=== PATIENT | male | born 1965 | race Caucasian/White ===

== ENCOUNTER 2018-09-15 17:06 | Inpatient (IN) ==
[2018-09-15] MEDS ORDERED: Aspirin 81 MG TAB.CHEW PO ONE ×2 (17:12→18:20)
[2018-09-15] MEDS ORDERED: Nitroglycerin 1 INCH/GM PACKET TP ONE ×2 (17:12→18:20)
[2018-09-15 17:22] LABS: Basophils # 0.1 K/mcL (0.0-0.2); Basophils % 0.9 %; Hematocrit 39.7 % (37.5-50.1); Hemoglobin 13.3 g/dL (12.9-16.9); Immature Granulocytes % 0.2 % (0-4); Lymphocytes # 1.6 K/mcL (0.6-4.6); Lymphocytes % 28.2 %; Mean Corpuscular HGB Conc 33.5 g/dL (31.6-35.5); Mean Corpuscular Hemoglobin 28.4 pg (28.0-33.3); Mean Corpuscular Volume 84.8 fL (83.0-100.0); Mean Platelet Volume 9.7 fL (9.4-12.4); Monocytes # 1.1 K/mcL (0.0-1.3); Monocytes % 19.6 %; Neutrophils # 2.9 K/mcL (1.6-8.9); Platelet Count 380 K/mcL (140-400); Red Blood Count 4.68 M/mcL (4.19-5.50); Red Cell Distribution Width 15.2 % (11.5-14.5); Segmented Neutrophils % 51.1 %
[2018-09-15] MEDS ORDERED: 0.9 % Sodium Chloride 1,000 ML IVC ONE ×3 (17:27→18:20)
[2018-09-15 17:30] LABS: INR 1.2; Prothrombin Time 13.2 Seconds (9.4-12.1)
--- NOTE | 2018-09-15 17:30 | Emergency Department Note ---
Disposition Clinical Impression: CAP (community acquired pneumonia), Hypotension Disposition: Admitted As Inpatient Condition: Fair Time of Disposition: 18:06 ( will admit) General Adult HPI - General Chief complaint: ED Arrhythmia/Palpitations Stated complaint: chest pain Time Seen by Provider: 09/15/18 17:28 Source: patient, EMS Mode of arrival: EMS Limitations: no limitations Nursing Notes Reviewed: Yes Vital Signs Reviewed: Yes - History of Present Illness HPI Narrative: This 53-year-old male, who presented to the emergency department via EMS. Patient states that he was laying on his couch at home when he tried to stand up he had a feeling of severe sweats, over him and some dizziness and blurred vision. After that he does not recall what happened. Patient does have history of seizure disorder, and states that he has not taken any of his seizure medicines for over a year. And that he also was complaining of this sharp pain in his chest, and is very nonspecific regarding the content of pain he is having. He denies smoking or drinking. Radiation: non-radiation Pain Severity: mild Pain Scale: 5 Quality: stabbing Consistency: intermittent Improves with: nothing Worsens with: nothing Associated symptoms: Reports: denies other symptoms Treatments Prior to Arrival: none - Related Data Allergies Allergy/AdvReac Type Severity Reaction Status Date / Time Amoxicillin Allergy Hives Verified 06/03/18 19:53 Penicillins [PCN] Allergy Hives Verified 06/03/18 19:53 acetaminophen AdvReac Nausea Verified 06/03/18 19:53 [From Darvocet-N] ibuprofen [From Motrin] AdvReac Nausea Verified 06/03/18 19:53 propoxyphene AdvReac Nausea Verified 06/03/18 19:53 [From Darvocet-N] Constitutional: Denies: fever, chills, weakness, weight change Eyes: Denies: eye pain, eye discharge, vision change ENT ED: Denies: ear pain, throat pain, dental pain, hearing loss, epistaxis, congestion, dysphagia Cardiovascular: Denies: chest pain, palpitations, dyspnea on exertion, edema, sy ncope Respiratory: Denies: cough, dyspnea, wheezes, hemoptysis, stridor Gastrointestinal: Denies: abdominal pain, nausea, vomiting, diarrhea, constipa tion, hematemesis, melena, hematochezia Genitourinary: Denies: urgency, dysuria, frequency, hematuria Musculoskeletal: Denies: back pain, neck pain, arthralgia, myalgia Integumentary: Denies: rash, abrasion, lesions Neurological: Denies: headache, weakness, numbness, paresthesias, confusion, abnormal gait, vertigo Psychiatric: Denies: anxiety, depression, suicidal thoughts, homicidal thoughts, auditory hallucinations, visual hallucinations Endocrine: Denies: fatigue Hematological/Lymphatic: Denies: easy bleeding, easy bruising Allergic/Immunologic: Denies: facial swelling, urticaria Past Medical History - Past Medical History Medical history: Reports: hepatitis, hypertension Surgical history: Reports: appendectomy, orthopedic, other, splenectomy, other Psychiatric history: Reports: anxiety, depression, panic disorder - Social History Smoking Status: Never smoker Smokeless Tobacco Status: No Alcohol use: Reports: occasionally Drug use: Reports: marijuana Physical Exam - General Limitations: no limitations General appearance: alert, in no apparent distress - Head Head exam: atraumatic, normocephalic, normal inspection - Eye Eye exam: Present: normal appearance, PERRL, EOMI - Expanded Eye Exam Pupils: Left: reactive - ENT ENT exam: normal exam, normal oropharynx, mucous membranes moist - Expanded ENT Exam External ear exam: Present: normal external inspection Mouth exam: Present: normal external inspection Teeth exam: Present: normal inspection Throat exam: Present: normal inspection - Neck Neck exam: Present: normal inspection, full ROM, trachea midline - Chest Chest inspection: Present: normal inspection, symmetric chest wall rise - Respiratory Respiratory exam: Present: normal lung sounds bilaterally - Cardiovascular Cardiovascular exam: Present: regular rate, normal rhythm, normal heart sounds - Abdominal Exam Abdominal exam: Present: soft, Non-Tender. Absent: tenderness, distention, guarding, rebound, rigidity - Extremities Exam Extremities exam: Present: normal inspection, full ROM. Absent: tenderness, pedal edema - Expanded Upper Extremity Exam Shoulder exam: Present: normal inspection, full ROM Arm exam: Present: normal inspection, full ROM Elbow exam: Present: normal inspection, full ROM Forearm/Wrist exam: Present: normal inspection, full ROM Hand exam: Present: normal inspection, full ROM Vascular exam: Normal: capillary refill, radial pulse - Expanded Lower Extremity Exam Hip/Pelvis exam: Present: normal inspection, full ROM Upper leg exam: Present: normal inspection, full ROM Knee exam: Present: normal inspection, full ROM Lower leg exam: Present: normal inspection, full ROM Ankle exam: Present: normal inspection, full ROM Foot/toe exam: Present: normal inspection, full ROM Neurovascular/Tendon exam: Absent: motor deficit, sensory deficit, tendon deficit - Back Exam Back exam: Present: normal inspection, full ROM. Absent: tenderness - Neurological Exam Neurological exam: Present: alert, oriented X3 - Expanded Neurological Exam Patient oriented to: Present: person, place, time Coma Scale Eye Opening: Spontaneous Coma Scale Motor Response: Obeys Commands Coma Scale Verbal Response: Oriented Coma Scale Total: 15 - Psychiatric Psychiatric exam: Present: normal affect, normal mood - Skin Skin exam: Present: warm, dry, intact, normal color Course Vital Signs Temperature 100.5 F H 09/15/18 17:07 Pulse Rate 69 09/15/18 17:07 Respiratory Rate 15 09/15/18 17:07 Blood Pressure 93/48 09/15/18 17:07 O2 Sat by Pulse Oximetry 98 09/15/18 17:07 Temperature 100.5 F H 09/15/18 17:30 Pulse Rate 69 09/15/18 17:30 Respiratory Rate 15 09/15/18 17:30 Blood Pressure 93/48 09/15/18 17:30 O2 Sat by Pulse Oximetry 98 09/15/18 17:30 Oxygen Delivery Oxygen Delivery Room Air Medical Decision Making - Medical Records Medical records reviewed: Yes I reviewed the patient's medical records. Patient had labs including CBC chemistries troponin EKG chest x-ray and a head CT. He was given 2 L of fluids wide open, blood culture 2 and a lactic acid level was obtained. Patient was started on Levaquin 500 mg IV for pneumonia. Initial blood pressure here was in the low 90s, his blood pressure has improved with IV fluids. At present blood pressure is 120/67. Patient is alert and awake and in no acute distress. I spoke with Dr. Matias the hospitalist, who is agreed to admit the patient. - Lab Data Lab results reviewed: Yes I reviewed the patient's lab results. Result diagrams: 09/15/18 17:14 09/15/18 17:14 Lab Results 09/15/18 09/15/18 09/15/18 Range/Units 17:14 17:14 17:14 WBC 5.6 (4.3-11.1) K/mcL RBC 4.68 (4.19-5.50) M/mcL Hgb 13.3 (12.9-16.9) g/dL Hct 39.7 (37.5-50.1) % MCV 84.8 (83.0-100.0) fL MCH 28.4 (28.0-33.3) pg MCHC 33.5 (31.6-35.5) g/dL RDW 15.2 H (11.5-14.5) % Plt Count 380 (140-400) K/mcL MPV 9.7 (9.4-12.4) fL Immature Gran % 0.2 (0-4) % Seg Neutrophils % 51.1 % Lymphocytes % 28.2 % Monocytes % 19.6 % Eosinophils % 0.0 % Basophils % 0.9 % Neutrophils # 2.9 (1.6-8.9) K/mcL Lymphocytes # 1.6 (0.6-4.6) K/mcL Monocytes # 1.1 (0.0-1.3) K/mcL Eosinophils # 0.0 (0.0-0.6) K/mcL Basophils # 0.1 (0.0-0.2) K/mcL Platelet Estimate Normal (Normal) Poikilocytosis 1+ A (Not Present) Acanthocytes (Spur) 1+ A (Not Present) PT 13.2 H (9.4-12.1) Seconds INR 1.2 APTT 34.5 (26.0-36.0) Seconds D-Dimer 1501 H (0-500) ng/mLFEU Sodium (136-145) mEq/L Potassium (3.5-5.1) mEq/L Chloride (98-107) mEq/L Carbon Dioxide (23-29) mEq/L BUN (6-20) mg/dL Creatinine (0.70-1.30) mg/dL Est GFR ( Amer) (> 60) Est GFR (Non-Af Amer) (> 60) BUN/Creatinine Ratio (6-26) Glucose (70-105) mg/dL Calculated Osmolality (280-300) Calcium (8.6-10.3) mg/dL Troponin I (< 0.04) ng/mL B-Natriuretic Peptide 32 (Less than 100) pg/mL 09/15/18 Range/Units 17:14 WBC (4.3-11.1) K/mcL RBC (4.19-5.50) M/mcL Hgb (12.9-16.9) g/dL Hct (37.5-50.1) % MCV (83.0-100.0) fL MCH (28.0-33.3) pg MCHC (31.6-35.5) g/dL RDW (11.5-14.5) % Plt Count (140-400) K/mcL MPV (9.4-12.4) fL Immature Gran % (0-4) % Seg Neutrophils % % Lymphocytes % % Monocytes % % Eosinophils % % Basophils % % Neutrophils # (1.6-8.9) K/mcL Lymphocytes # (0.6-4.6) K/mcL Monocytes # (0.0-1.3) K/mcL Eosinophils # (0.0-0.6) K/mcL Basophils # (0.0-0.2) K/mcL Platelet Estimate (Normal) Poikilocytosis (Not Present) Acanthocytes (Spur) (Not Present) PT (9.4-12.1) Seconds INR APTT (26.0-36.0) Seconds D-Dimer (0-500) ng/mLFEU Sodium 131 L (136-145) mEq/L Potassium 3.4 L (3.5-5.1) mEq/L Chloride 97 L (98-107) mEq/L Carbon Dioxide 26 (23-29) mEq/L BUN 11 (6-20) mg/dL Creatinine 0.96 (0.70-1.30) mg/dL Est GFR ( Amer) > 60 (> 60) Est GFR (Non-Af Amer) > 60 (> 60) BUN/Creatinine Ratio 11 (6-26) Glucose 106 H (70-105) mg/dL Calculated Osmolality 272 L (280-300) Calcium 8.6 (8.6-10.3) mg/dL Troponin I < 0.03 (< 0.04) ng/mL B-Natriuretic Peptide (Less than 100) pg/mL - Radiology Data Radiology results reviewed: Yes I reviewed the patient's radiology results. Chest x-ray per radiology reading shows patchy infiltrate consistent with possible pneumonia. CT of head without contrast shows couple of small areas of the ischemia this is in comparison to previous CT of the head. I suspect this patient's symptoms of dizziness and blurred vision were due to the fact that his blood pressure was low - EKG Data EKG #1 EKG attestation: Yes I reviewed and interpreted this EKG. EKG results narrative: EKG is normal sinus rhythm, mild left ventricular hypertrophy EKG shows normal: sinus rhythm Rate: normal Rhythm: NSR [place]/QRS: normal Voltage: increased voltage throughout - Core Measures AMI Core Measures Followed: Yes
[2018-09-15 17:32] LABS: Activated Partial Thrombo Time 34.5 Seconds (26.0-36.0)
[2018-09-15 17:36] LABS: BUN/Creatinine Ratio 11 (6-26); Blood Urea Nitrogen 11 mg/dL (6-20); Calcium 8.6 mg/dL (8.6-10.3); Carbon Dioxide 26 mEq/L (23-29); Chloride 97 mEq/L (98-107); Glucose 106 mg/dL (70-105); Osmolality,Calculated 272 (280-300); Potassium 3.4 mEq/L (3.5-5.1); Sodium 131 mEq/L (136-145); eGFR For Non-African Americans > 60 (> 60)
[2018-09-15 17:41] LABS: Troponin I < 0.03 ng/mL (< 0.04)
[2018-09-15 17:49] LABS: Platelet Estimate Normal (Normal)
[2018-09-15 17:50] LABS: Acanthocytes 1+ (Not Present); Poikilocytosis 1+ (Not Present)
[2018-09-15] MEDS ORDERED: Levofloxacin 500 MG/100 ML 500 MG/100 ML BAG IVPB SCH (18:00)
[2018-09-15] MEDS ORDERED: Levofloxacin 500 MG/100 ML 500 MG/100 ML BAG IVPB ONE ×2 (18:00→18:20)
[2018-09-15] MEDS ORDERED: Isovue-370 500 ML INFUS..BTL IV ONE (19:25)
[2018-09-15 23:10] LABS: Bilirubin,Urine Negative (Negative); Blood,Urine Negative (Negative); Clarity,Urine Clear (Clear); Color,Urine Yellow (Yellow); Glucose,Urine (UA) Normal (Normal); Ketones,Urine Negative (Negative); Leukocyte Esterase,Urine Negative (Negative); Nitrite,Urine Negative (Negative); Protein,Urine Negative (Neg-Trace); Urobilinogen,Urine Normal (Normal)
[2018-09-16 07:12] VITALS: BP 130/84
--- NOTE | 2018-09-16 11:00 | Internal Med History&Physical ---
Date of Encounter: 09/16/18 Time of Encounter: 10:30 Assessment and Plan (1) Syncope Current visit: Yes Status: Acute Etiology not certain but possibly related to hypotension. He was given IV fluids in emergency room and hypotension is now resolved. He reports no further syncope or near-syncopal episodes on ambulating in his room. He wishes to be di scharged home. Qualifiers: Syncope type: unspecified Qualified Code(s): R55 - Syncope and collapse (2) Hepatitis B Current visit: Yes Status: Acute I recommended he follow with a PCP for further testing/treatment Qualifiers: Viral hepatitis chronicity: unspecified Hepatic coma status: without hepatic coma Hepatitis delta agent presence: without delta-agent Qualified Code(s): B19.10 - Unspecified viral hepatitis B without hepatic coma (3) Hepatitis C Current visit: No Status: Acute Recommended he follow with his PCP for further testing/treatment Qualifiers: Viral hepatitis chronicity: unspecified Hepatic coma status: without he patic coma Qualified Code(s): B19.20 - Unspecified viral hepatitis C without hepatic coma (4) Hypokalemia Current visit: Yes Status: Acute Possibly secondary to vomiting. He will be given a supplemental potassium pill prior to discharge. (5) Fever Current visit: Yes Status: Acute He had low-grade fever on admission which is now resolved. Suspect possible viral infection. Chest CTA showed no infiltrate. UA was unremarkable. Will not workup or treat further at this time. Qualifiers: Fever type: unspecified Qualified Code(s): R50.9 - Fever, unspecified Internal Medicine - H&P: HPI Chief complaint: Syncope Admitted From: Emergency Dept Plans for Post Hospital Care: Home History of present illness: Mr. Romano is a 53 year old male was brought to emergency room after he reports sitting up on the side of the couch and developing warm diaphoresis followed by syncope. He denies chest pain or dyspnea. He was brought to emergency room and evaluated and admitted to [facility] for ongoing care needs. He states he feels back to his baseline now and wishes to be discharged home. He has not had previous syncopal episodes recently. Cardiovascular history is pertinent for hypertension but he denies [place] heart failure angina pulmonary embolism. He reports he had "blood clots" in his legs approximately 2011 but did not receive outpatient anticoagulant following inpatient hospitalization when the diagnosis was made. He has not had known recurrence. Neurologic history is pertinent for seizures in childhood but he has not had seizures in several years. He has not taken seizure medication since age 17. Past Med Surg Social Fam HX - Past Medical History Medical history: hepatitis, hypertension Additional medical history: depression, blood clots ,old hep c. generalized anxiety disorder. marijuana abuse. 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 COLON SURGERY. knee scope. ear sx - Social History Smoking Status: Never smoker Smokeless Tobacco Status: No Alcohol use: occasionally Drug use: marijuana - Family History Mother Hx Family Cardiac Disorders: Yes ([place]) Internal Medicine - H&P: Meds Allergy/AdvReac Type Severity Reaction Status Date / Time Amoxicillin Allergy Hives Verified 06/03/18 19:53 Penicillins [PCN] Allergy Hives Verified 06/03/18 19:53 acetaminophen AdvReac Nausea Verified 06/03/18 19:53 [From Darvocet-N] ibuprofen [From Motrin] AdvReac Nausea Verified 06/03/18 19:53 propoxyphene AdvReac Nausea Verified 06/03/18 19:53 [From Darvocet-N] All Systems PM: A 10-system review of systems was performed and is negative for pertinent findings except as documented above in the HPI. Review of systems: Gen.: He states his weight has been stable the past few months Cardiovascular: As per history of present illness Respiratory: He states he is a lifelong nonsmoker and has no known chronic lung disease GI: He has history of hepatitis B and hepatitis C. He has not received treatment. He denies other disorders of his liver gallbladder or exocrine pancreas. He reports having splenectomy and colon lacerations requiring surgical repair following an accident several years ago.. He reports 5-6 episodes of vomiting on September 13 without hematemesis visible. He has had no further vomiting and denies any diarrhea or abdominal pain. : He denies hematuria dysuria or kidney stones Neurologic: As per history of present illness Endocrine: He denies diabetes thyroid disease or hyperlipidemia Hematology/oncology: He denies blood disorders cancers or anemia Psychiatric: He feels depressed but does not take medication. Denies other mental health diagnosis. [place] skeletal: He has DJD. He reports surgery on his knee and 3 surgeries on his left foot. He is uncertain if he has gout. - Constitutional Vitals: Temp Pulse Resp BP Pulse Ox 98.6 F 46 18 130/84 98 09/16/18 07:10 09/16/18 07:10 09/16/18 07:10 09/16/18 07:10 09/16/18 07:10 Exam: Gen.: He is a well-developed well-nourished male resting comfortably in bed who appears in no acute distress at present time HEENT: Head is atraumatic and normocephalic. Eyes: EOMI. There is no scleral icterus. Mouth: Mucosa is moist. Neck: Supple and nontender. There is no thyromegaly or adenopathy noted. Heart: Regular without murmurs gallops or ectopics Lungs: No wheezes or crackles are heard. Abdomen: Soft and nontender. No masses or guarding are noted. Extremities: There is no cyanosis edema or clubbing noted. Dorsalis pedis and posterior tibial pulses are 1-2 over 2 bilaterally. Neurologic: Mental status: He is talkative and a good historian. Cranial nerves: Smile is symmetric. Forehead wrinkles bilaterally. Tongue protrudes midline. EOMI. Motor: There is no pronator drift. Cerebellar: Finger to nose is intact bilaterally. Skin: Warm and dry. He has numerous tattoos on his body. Internal Med - H&P Results - Labs CBC & Chem 7: 09/15/18 17:14 09/15/18 17:14 Labs: Short CBC 09/15/18 Range/Units 17:14 WBC 5.6 (4.3-11.1) K/mcL Hgb 13.3 (12.9-16.9) g/dL Hct 39.7 (37.5-50.1) % Plt Count 380 (140-400) K/mcL Neutrophils # 2.9 (1.6-8.9) K/mcL BMP 09/15/18 17:14 Sodium 131 L Potassium 3.4 L Chloride 97 L Carbon Dioxide 26 BUN 11 Creatinine 0.96 Glucose 106 H Calcium 8.6 Cardiac Enzymes 09/15/18 Range/Units 17:14 Troponin I < 0.03 (< 0.04) ng/mL Urine 09/15/18 Range/Units 23:07 Urine Color Yellow (Yellow) Urine Clarity Clear (Clear) Urine pH 7.0 (5.0-8.0) pH Units Ur Specific [place] 1.010 (1.010-1.025) Urine Protein Negative (Neg-Trace) mg/dL Urine Glucose (UA) Normal (Normal) mg/dL - Impressions ITS Impressions Chest X-Ray 09/15/18 17:12 IMPRESSION: Small amount of patchy pulmonary opacities within left mid lung. Findings could represent atelectasis, and/or pneumonia. Recommend radiographic follow-up to complete resolution. D/ / 09/15/2018 17:59:43 Lamberto Rodriguez MD / Henna Cosme Interpreting Provider: Lamberto Rodriguez MD Head CT 09/15/18 17:16 IMPRESSION: A few tiny foci of low density in the subcortical white matter are noted bilaterally. These were not definitively present on the prior and may represent sequela of small vessel ischemic change and/or prior tiny infarcts. Perivascular spaces are possible as well No acute hemorrhage D/ / Kenny Daniel / Kenny Daniel Interpreting Provider: Kenny Daniel Chest CTA 09/15/18 19:25 IMPRESSION: No evidence of pulmonary embolism or acute pulmonary abnormality. D/ / Bright Robert MD / Bright Robert MD Interpreting Provider: Bright Robert MD
--- NOTE | 2018-09-16 11:23 | Discharge Summary ---
Orders not resulted at time of discharge: Pending orders 09/15/18 17:12 ECG 12 lead ECG [ECG] Stat 09/15/18 18:05 Culture,Blood [BC] Stat Date of Encounter: 09/16/18 Time of Encounter: 10:30 - Discharge Diagnosis (1) Syncope Priority: Primary Status: Acute Qualifiers: Syncope type: unspecified Qualified Code(s): R55 - Syncope and collapse (2) Hepatitis B Priority: Secondary Status: Acute Qualifiers: Viral hepatitis chronicity: unspecified Hepatic coma status: without hepatic coma Hepatitis delta agent presence: without delta-agent Qualified Code(s): B19.10 - Unspecified viral hepatitis B without hepatic coma (3) Hepatitis C Priority: Secondary Status: Acute Qualifiers: Viral hepatitis chronicity: unspecified Hepatic coma status: without hepatic coma Qualified Code(s): B19.20 - Unspecified viral hepatitis C without hepatic coma (4) Hypokalemia Priority: Secondary Status: Acute (5) Fever Priority: Secondary Status: Acute Qualifiers: Fever type: unspecified Qualified Code(s): R50.9 - Fever, unspecified Hospital course: Mr. Romano is a 53 year old male who was brought to emergency room after he reports sitting up on the side of the couch and developing warm diaphoresis followed by syncope. He denies chest pain or dyspnea. He was brought to emergency room and evaluated and admitted to [facility] for ongoing care needs. Initial orders were written by the emergency room physician. I saw him on September 16 and performed a history physical and discharge. He had no further syncopal or near syncopal episodes. When I saw him he felt back to his baseline and felt stable for discharge home which I felt was reasonable. He had ambulated in his room without difficulty. He had no vomiting and reported adequate food and fluid intake. The etiology of the syncope was not determined with certainty but I felt it was possibly related to hypotension documented on admission that resolved during his hospital stay with treatment. He reported history of hepatitis B and C but had not had definitive workup or any treatment. I recommended he follow with his PCP for additional testing/treatment. Hypokalemia was treated with potassium supplementation prior to discharge. His PCP can monitor labs as needed. He had low-grade fever on admission which resolved during his hospital stay. No further workup or treatment was given. He will follow with Jeimy Beckman CNP within 1 week. I told him that she could further address his history of DVT, pain complaints, and feelings of depression. - Time Spent with Patient Total time spent providing and/or coordinating discharge services: - Discharge Medications Allergies/Adverse Reactions: Allergy/AdvReac Type Severity Reaction Status Date / Time Amoxicillin Allergy Hives Verified 06/03/18 19:53 Penicillins [PCN] Allergy Hives Verified 06/03/18 19:53 acetaminophen AdvReac Nausea Verified 06/03/18 19:53 [From Darvocet-N] ibuprofen [From Motrin] AdvReac Nausea Verified 06/03/18 19:53 propoxyphene AdvReac Nausea Verified 06/03/18 19:53 [From Darvocet-N] Date of admission: 09/15/18 18:14 Primary care physician: Jeimy Beckman CNP - Constitutional Vitals: Temp Pulse Resp BP Pulse Ox 98.6 F 46 18 130/84 98 09/16/18 07:10 09/16/18 07:10 09/16/18 07:10 09/16/18 07:10 09/16/18 07:10 - Patient Status Disposition: Home, Self-Care Condition: Fair - Discharge Instructions Instructions: Pneumonia (DC) Follow Up With: Jeimy Beckman CNP [Advanced Practice Nurse] - 1 week - Diet and Activity Activity: resume usual activities as tolerated Diet: advance to your usual diet
[2018-09-16] MEDS ORDERED: Levofloxacin 500 MG/100 ML 500 MG/100 ML BAG IVPB SCH (18:00)
== END 2018-09-16 12:16 | disposition home or self-care (01) | DRG 207 ==
LOC: INPPIK 17:06 → EMEROOPIK 17:06 → INPPIK 19:55
PROVIDERS: ADMIT Internal Medicine; ATTEND Internal Medicine